=== PATIENT | female | born 1955 | race Caucasian/White ===

== ENCOUNTER 2025-08-25 07:42 | Inpatient (IN) ==
--- NOTE | 2025-07-13 15:50 | PAT Medication Instructions ---
Medication Instructions Date of Service July 13, 2025 Home Medications acetaminophen 500 mg tablet 500 mg PO QID PRN Pain albuterol sulfate 90 mcg/actuation aerosol inhaler 2 puff inhalation Q6H PRN sob amlodipine 5 mg tablet 5 mg PO QAM ascorbic acid (vitamin C) 500 mg tablet (Vitamin C) 500 mg PO DAILY aspirin 81 mg capsule 81 mg PO DAILY cyanocobalamin (vitamin B-12) 1,000 mcg/mL injection solution 100 mcg IM MO diphenhydramine 25 mg-acetaminophen 500 mg tablet (Tylenol PM Extra Strength) 1 tab PO HS PRN Sleep docusate sodium 100 mg capsule (Stool Softener) 100 mg PO DAILY PRN Constipation famotidine 20 mg tablet 20 mg PO BID levothyroxine 88 mcg tablet 88 mcg PO QAM losartan 25 mg tablet 25 mg PO QAM meclizine 12.5 mg tablet 12.5 mg PO BID PRN Vertigo metoprolol succinate 25 mg tablet,extended release 24 hr 75 mg PO BID nitroglycerin 0.4 mg sublingual tablet 0.4 mg sublingual UD PRN Chest Pain ondansetron HCl 4 mg tablet 4 mg PO Q6H PRN Nausea And Vomiting ropinirole 0.25 mg tablet 0.25 mg PO HS rosuvastatin 40 mg tablet 40 mg PO HS Continue as directed nitroglycerin 0.4 mg sublingual tablet 0.4 mg sublingual UD PRN Chest Pain (if needed) ASK your prescriber and surgeon aspirin 81 mg capsule 81 mg PO DAILY DO NOT take the morning of surgery ascorbic acid (vitamin C) 500 mg tablet (Vitamin C) 500 mg PO DAILY cyanocobalamin (vitamin B-12) 1,000 mcg/mL injection solution 100 mcg IM MO docusate sodium 100 mg capsule (Stool Softener) 100 mg PO DAILY PRN Constipation losartan 25 mg tablet 25 mg PO QAM Take morning of surgery With a small sip of water, OTHERWISE NOTHING TO EAT OR DRINK AFTER MIDNIGHT: acetaminophen 500 mg tablet 500 mg PO QID PRN Pain (if needed) albuterol sulfate 90 mcg/actuation aerosol inhaler 2 puff inhalation Q6H PRN sob (use if needed; please bring rescue inhaler with you to hospital day of surgery if possible) amlodipine 5 mg tablet 5 mg PO QAM famotidine 20 mg tablet 20 mg PO BID levothyroxine 88 mcg tablet 88 mcg PO QAM meclizine 12.5 mg tablet 12.5 mg PO BID PRN Vertigo (if needed) metoprolol succinate 25 mg tablet,extended release 24 hr 75 mg PO BID ondansetron HCl 4 mg tablet 4 mg PO Q6H PRN Nausea And Vomiting (if needed) Take evening before surgery acetaminophen 500 mg tablet 500 mg PO QID PRN Pain (if needed) albuterol sulfate 90 mcg/actuation aerosol inhaler 2 puff inhalation Q6H PRN sob (if needed) diphenhydramine 25 mg-acetaminophen 500 mg tablet (Tylenol PM Extra Strength) 1 tab PO HS PRN Sleep (if needed) docusate sodium 100 mg capsule (Stool Softener) 100 mg PO DAILY PRN Constipation (if needed) famotidine 20 mg tablet 20 mg PO BID meclizine 12.5 mg tablet 12.5 mg PO BID PRN Vertigo (if needed) metoprolol succinate 25 mg tablet,extended release 24 hr 75 mg PO BID ondansetron HCl 4 mg tablet 4 mg PO Q6H PRN Nausea And Vomiting (if needed) ropinirole 0.25 mg tablet 0.25 mg PO HS rosuvastatin 40 mg tablet 40 mg PO HS Other Notes If you have any questions please call us at [phone] or [phone] or [phone] or [phone]
--- NOTE | 2025-07-24 13:13 | Anesthesiology Consultation ---
Date of Service July 24, 2025 Assessment & Plan (1) Encounter for pre-operative examination: Chart Review Chart Review: Acceptable Risk for Surgery (pending surgeon ordered PCP and cardio clearances ) and Patient seen in Pre Admission Testing - Awaiting surgeon ordered PCP clearance 08/07/25 (Dr Sophai Singleton- [facility])- please send preop testing to PCP for review - Awaiting surgeon ordered cardio clearance (surgeon was requesting letter per patient) ([facility] [place]) - Check BSG AM DOS Per PAT appt on 07/24/25, no recent illness/disease exposures, illness related symptoms, or recent illness/disease positive tests. Will leave to surgeon's discretion if preop Covid testing needed Cardiology visit 06/21/25= "... here for cardiovascular evaluation... recommend continuation of Losartan... follow up in six months..." Teaching & Discussion Pre-Anesthesia Teaching/Discussion Notes: Instructed NPO after midnight before surgery,except medications with 15 cc of water. Medication instructions provided according to the PAT guidelines. History Surgery Operation Date: 08/25/25 07:45 Proposed Procedures p L4-S1 Decompression and Fusion, Possible L3-L4 Decompression and Fusion - Anthony Eldridge, Height/Weight Height: 5 ft 2 in Weight: 108.9 kg Allergies Allergy/AdvReac Type Severity Reaction Status Date / Time shellfish derived Allergy Unknown Abdominal Verified 07/13/25 14:30 Pain Medications Home Medications Medication Instructions Recorded Confirmed Last Taken acetaminophen 500 mg tablet 500 mg PO QID PRN Pain 07/13/25 07/13/25 Unknown albuterol sulfate 90 mcg/actuation 2 puff inhalation Q6H PRN sob 07/13/25 07/13/25 Unknown aerosol inhaler amlodipine 5 mg tablet 5 mg PO QAM 07/13/25 07/13/25 Unknown ascorbic acid (vitamin C) 500 mg 500 mg PO DAILY 07/13/25 07/13/25 Unknown tablet (Vitamin C) aspirin 81 mg capsule 81 mg PO DAILY 07/13/25 07/13/25 Unknown cyanocobalamin (vitamin B-12) 100 mcg IM MO 07/13/25 07/13/25 Unknown 1,000 mcg/mL injection solution diphenhydramine 25 1 tab PO HS PRN Sleep 07/13/25 07/13/25 Unknown mg-acetaminophen 500 mg tablet (Tylenol PM Extra Strength) docusate sodium 100 mg capsule 100 mg PO DAILY PRN Constipation 07/13/25 07/13/25 Unknown (Stool Softener) famotidine 20 mg tablet 20 mg PO BID 07/13/25 07/13/25 Unknown levothyroxine 88 mcg tablet 88 mcg PO QAM 07/13/25 07/13/25 Unknown losartan 25 mg tablet 25 mg PO QAM 07/13/25 07/13/25 Unknown meclizine 12.5 mg tablet 12.5 mg PO BID PRN Vertigo 07/13/25 07/13/25 Unknown metoprolol succinate 25 mg 75 mg PO BID 07/13/25 07/13/25 Unknown tablet,extended release 24 hr nitroglycerin 0.4 mg sublingual 0.4 mg sublingual UD PRN Chest Pain 07/13/25 07/13/25 Unknown tablet ondansetron HCl 4 mg tablet 4 mg PO Q6H PRN Nausea And Vomiting 07/13/25 07/13/25 Unknown ropinirole 0.25 mg tablet 0.25 mg PO HS 07/13/25 07/13/25 Unknown rosuvastatin 40 mg tablet 40 mg PO HS 07/13/25 07/13/25 Unknown Past Medical History Medical History Acid reflux well controlled and stable Awareness under anesthesia woke up during breast surgery CAD (coronary artery disease) s/p PCI to LCx- around Carotid artery disease <50% stenosis to bilateral ICAs per 11/2024 carotid duplex CKD (chronic kidney disease), stage III follows w/ [facility] in [place] (was up to stage IV- did improve with stage III with med changes and increased fluid intake) Diabetes Per records Diet controlled currently; does use Humalog PRN if on steroids Dyslipidemia History of COVID-19 (2022) resolved HTN (hypertension) Hx of myocardial infarction hx of "silent DE" Hypothyroidism Neuropathy bilat feet PAD (peripheral artery disease) Per LE arterial u/s 11/2024- no significant PVD to right LE; Mild (1-49%) PVD to left distal posterior tibial artery Renal cyst Restless legs syndrome (RLS) Sleep apnea CPAP Thyroid nodule hx radioactive iodine tx in her 20's Exercise / Class Metabolic Activity III < 4 Walking/Shop/Light housework (no chest pain or SOB with flat surface ambulation- uses cane to ambulate ) Past Surgical History Surgical History History of arthroplasty of left shoulder History of bilateral knee replacement History of bunionectomy of left great toe History of carpal tunnel surgery of right wrist History of endometrial ablation and cervical ablation History of esophagogastroduodenoscopy (EGD) Hx of bilateral breast reduction surgery Hx of bilateral cataract extraction Hx of cardiac catheterization abnormal stress test > 2 stents ~2014- [facility]- follows w/ cardio assoc in [place] Dr Escobar states has had a total of 5-6 caths done to "check things out" last done 2020("for med clearance prior to shoulder sx" ) - no stents- [facility] Hx of cholecystectomy Hx of colonoscopy Hx of tooth extraction Hx of tubal ligation Past Anesthesia History No Hx of Anesthesia Complications (with exception to awareness with surgery x 2 with sedation cases (denies awareness with ETT in place)) and No Family Hx of Anesthesia Complications History of PONV History of PONV (post op on the rides home of same day surgeries ) and Hx of Motion Sickness Social History Smoking Status: Former smoker Do You Dip or Chew Tobacco: No Smoking End Date: quit ~17 yrs ago Hx Alcohol Use: No Hx Substance Use: No (otc CBD gummy- for pain) substance use type: does not use Review of Systems Patient denies chest pain, shortness of breath at rest, cough, wheezing, palpitations. No hx of seizures, stroke. No hx of blood clots or blood transfusions Physical Exam Vital Signs VITALS BP 145/73 P 72 TEMP 97.8 SP02 96% on RA RESP 16 Constitutional no acute distress ENMT Mouth: no TMJ clicking Thyromental Distance: > or= 3.5 Finger Breadths (3.5) Mallampati Class: II Full upper denture Neck + short neck and + thick neck; neck extension not limited Respiratory normal respiratory effort; no respiratory distress Auscultation: lungs clear to auscultation bilaterally; no wheezes Cardiovascular Rate/Rhythm: regular rate and regular rhythm Heart Sounds: no murmur Vessels: no carotid bruit Musculoskeletal Spine: no pain with cervical ROM Extremities: extremities normal to inspection Psychiatric Orientation: alert Lab Results Anesthesia Preop Results Results Anesthesia Widget: WBC 6.54 K/ul (4.8-10.8) 07/24/25 Hgb 13.7 g/dL (12.0-16.0) 07/24/25 Hct 43.2 % (37.0-47.0) 07/24/25 Plt 206 K/uL (130-400) 07/24/25 Na 143 mmol/L (136-145) 07/24/25 K 4.5 mmol/L (3.5-5.1) 07/24/25 Cl 110 mmol/L (98-107) H 07/24/25 CO2 28 mmol/L (21-32) 07/24/25 BUN 19 mg/dl (6-23) 07/24/25 Creat 1.70 mg/dl (0.6-1.2) H 07/24/25 Glucose Level 114 mg/dl (70-99(Fasting)) H 07/24/25 PT 10.7 Seconds (9.0-12.0) 07/24/25 PTT 25 Seconds (21-31) 07/24/25 INR 1.0 (0.9-1.1) 07/24/25 HA1c 6.2 % (4.5-5.6) H 07/24/25 Urine Color Yellow 07/24/25 Urine Appearance Clear (Clear) 07/24/25 Urine pH 7.0 (4.5-7.5) 07/24/25 Urine Specific [place] 1.010 (1.000-1.030) 07/24/25 Urine Protein 2+ (Negative) H 07/24/25 Urine Glucose (UA) Negative (Negative) 07/24/25 Urine Ketones Negative (Negative) 07/24/25 Urine Blood 1+ (Negative) H 07/24/25 Urine Nitrite Negative (Negative) 07/24/25 Urine Bilirubin Negative (Negative) 07/24/25 Urine Urobilinogen Negative (Negative) 07/24/25 Urine Leukocyte Esterase Negative (Negative) 07/24/25 Urine WBC (Auto) 0-5 /hpf (0-5) 07/24/25 Urine RBC (Auto) 0-2 /hpf (0-2) 07/24/25 Urine Hyaline Casts (Auto) 0-2 /lpf (0-2) 07/24/25 Urine Epithelial Cells (Auto) 3-5 /hpf (0-2) H 07/24/25 Urine Bacteria (Auto) 2+ (None Seen) H 07/24/25 Blood Type O Positive 07/24/25 Antibody Screen NEGATIVE 07/24/25 Testing Laboratory Results Elevated creatinine- CKD stage III/IV Abnormal UA - surgeon's office informed Electrocardiogram Date: 07/24/25 Findings: + NSR @ (68bpm) Normal EKG per cardio Chest X-Ray Date: 05/23/25 Findings: + NAD Echocardiogram Date: 11/28/24 EF: 50-55% LV Function: normal Other Findings: + diastolic dysfunction (Grade I ); no LVH Mitral annulus demonstrates mild calcification; mitral leaflets are mildly sclerotic and MV opens normally Mild MR Normal pulmonary artery pressures Cardiac Catheterization Date: 04/27/23 LM= luminal irregularities LAD= luminal irregularities LCx= 20-30% stenosis in mid LCx followed by patent stent in mid to distal LCx. LPL branch has 20-30% stenosis/luminal irregularities Ramus= luminal irregularities RCA= luminal irregularities Impression: Nonobstructive CAD and patent stent in left circumflex Nonobstructive CAD of the LAD, ramus intermedius as well as nondominant RCA Other Testing Carotid doppler 11/17/24= <50% stenosis to bilateral ICAs. Antegrade flow to both vertebral arteries
[~2025-08-25 07:42] MED LIST: DEXAMETHASONE SOD INJ 4 MG/ML VIAL ONE; GLYCOPYRROLATE 0.2 MG/ML VIAL ONE; LIDOCAINE 2% 2 ML VIAL/AMP(20MG/ML) INFIL ONE; MIDAZOLAM HCL 1 MG/ML 2ML VIAL ONE; ONDANSETRON INJ 2 MG/ML 2 ML VIAL ONE; PROPOFOL IV EMULSION 10 MG/ML 20 ML VIAL IV ONE; ROCURONIUM BROMIDE 10 MG/ML 5 ML VIAL IV ONE; SUGAMMADEX SODIUM 200 MG/2 ML VIAL IV ONE
[2025-08-25] MEDS: CeleBREX 200 MG CAP PO SCH (08:11)
[2025-08-25] MEDS: LR 15ML/HR IV SCH (08:12)
[2025-08-25] MEDS: GABAPENTIN 300 MG CAP PO SCH (08:12)
[2025-08-25] MEDS: LR 60ML/HR IV SCH (08:12)
[2025-08-25] MEDS: ACETAMINOPHEN 500 MG TAB PO SCH (08:13)
[2025-08-25 08:16] LABS: Anion Gap 8.0 (3-11); Blood Urea Nitrogen 17.0 mg/dl (6-23); Calcium 10.0 mg/dl (8.6-10.3); Carbon Dioxide 26.0 mmol/L (21-32); Chloride 108.0 mmol/L (98-107); Creatinine Clr Calc Pharmacy 33.0 ml/min; Glucose 144.0 mg/dl (70-99(Fasting)); Potassium 4.4 mmol/L (3.5-5.1); Sodium 142.0 mmol/L (136-145)
[2025-08-25] MEDS ORDERED: ATROPINE SULFATE 0.1 MG/ML 10ML SYR IV PRN (08:32)
--- NOTE | 2025-08-25 09:16 | History & Physical Bridge Note ---
Date of Service August 25, 2025 History & Physical Bridge Note I have examined the patient, reviewed the History & Physical and in the interval since the performance of the History & Physical I have noted the following changes of clinical significance: no changes noted
--- NOTE | 2025-08-25 09:17 | History & Physical Report ---
Date of Service August 25, 2025 Assessment & Plan (1) Multilevel lumbosacral spondylosis with radiculopathy: Plan: L4-S1 decompression and fusion, possible L3-L4 decompression fusion History of Present Illness Chief Complaint: Back and bilateral leg pain Primary Care Provider: Jose Deutsch This is a 70-year-old female who presents for chronic persistent back and leg pain after failing course of nonoperative care is here for surgical invention. Allergies Allergy/AdvReac Type Severity Reaction Status Date / Time shellfish derived Allergy Unknown Abdominal Verified 08/25/25 07:43 Pain Home Medications Medication Instructions Recorded Confirmed Type acetaminophen 500 mg tablet 500 mg PO QID PRN Pain 07/13/25 08/25/25 History albuterol sulfate 90 mcg/actuation 2 puff inhalation Q6H PRN sob 07/13/25 08/25/25 History aerosol inhaler amlodipine 5 mg tablet 5 mg PO QAM 07/13/25 08/25/25 History ascorbic acid (vitamin C) 500 mg 500 mg PO DAILY 07/13/25 08/25/25 History tablet (Vitamin C) aspirin 81 mg capsule 81 mg PO DAILY 07/13/25 08/25/25 History cyanocobalamin (vitamin B-12) 100 mcg IM MO 07/13/25 08/25/25 History 1,000 mcg/mL injection solution diphenhydramine 25 1 tab PO HS PRN Sleep 07/13/25 08/25/25 History mg-acetaminophen 500 mg tablet (Tylenol PM Extra Strength) docusate sodium 100 mg capsule 100 mg PO DAILY PRN Constipation 07/13/25 08/25/25 History (Stool Softener) famotidine 20 mg tablet 20 mg PO BID 07/13/25 08/25/25 History levothyroxine 88 mcg tablet 88 mcg PO QAM 07/13/25 08/25/25 History losartan 25 mg tablet 25 mg PO QAM 07/13/25 08/25/25 History meclizine 12.5 mg tablet 12.5 mg PO BID PRN Vertigo 07/13/25 08/25/25 History metoprolol succinate 25 mg 75 mg PO BID 07/13/25 08/25/25 History tablet,extended release 24 hr nitroglycerin 0.4 mg sublingual 0.4 mg sublingual UD PRN Chest Pain 07/13/25 08/25/25 History tablet ondansetron HCl 4 mg tablet 4 mg PO Q6H PRN Nausea And Vomiting 07/13/25 08/25/25 History rosuvastatin 40 mg tablet 40 mg PO HS 07/13/25 08/25/25 History Past Med/Surg History Problem List (Updated 08/25/25 @ 09:17 by Anthony Eldridge, DO) Multilevel lumbosacral spondylosis with radiculopathy Medical History Acid reflux well controlled and stable Awareness under anesthesia woke up during breast surgery CAD (coronary artery disease) s/p PCI to LCx- around Carotid artery disease <50% stenosis to bilateral ICAs per 11/2024 carotid duplex CKD (chronic kidney disease), stage III follows w/ [facility] in [place] (was up to stage IV- did improve with stage III with med changes and increased fluid intake) Diabetes Per records Diet controlled currently; does use Humalog PRN if on steroids Dyslipidemia History of COVID-19 (2022) resolved HTN (hypertension) Hx of myocardial infarction hx of "silent PR" Hypothyroidism Neuropathy bilat feet PAD (peripheral artery disease) Per LE arterial u/s 11/2024- no significant PVD to right LE; Mild (1-49%) PVD to left distal posterior tibial artery Renal cyst Restless legs syndrome (RLS) Sleep apnea CPAP Thyroid nodule hx radioactive iodine tx in her 20's Surgical History History of arthroplasty of left shoulder History of bilateral knee replacement History of bunionectomy of left great toe History of carpal tunnel surgery of right wrist History of endometrial ablation and cervical ablation History of esophagogastroduodenoscopy (EGD) Hx of bilateral breast reduction surgery Hx of bilateral cataract extraction Hx of cardiac catheterization abnormal stress test > 2 stents ~2014- [facility]- follows w/ cardio assoc in [place] Dr Escobar states has had a total of 5-6 caths done to "check things out" last done 2020("for med clearance prior to shoulder sx" ) - no stents- [facility] Hx of cholecystectomy Hx of colonoscopy Hx of tooth extraction Hx of tubal ligation Social History Smoking Status: Former smoker Tobacco Type: Cigarettes Smoking End Date: quit ~17 yrs ago; Second Hand Exposure: No; Do You Dip or Chew Tobacco: No; Tobacco Cessation Education Requested by Patient: No Hx Alcohol Use: No Hx Substance Use: No (otc CBD gummy- for pain) Preferred Language: Citizen Of [place] Communication Ability: Effective Keypunch Operator Required: No Beliefs That Will Affect Care: None Current Living Situation: Spouse Other Information That Helps Us Care for You: No Feels Safe at Home: Yes Safety Concerns: Feels Safe At This Time Assistive Devices: Cane, CPAP, Denture - Upper and Glasses Assistive Devices Comment: reading glasses Physical Exam Physical Exam: Patient is alert and oriented Heart regular rhythm Lungs clear Results & Data Results & Data Vital Signs (Past 12 Hours) Vital Signs Temp Pulse Resp BP Pulse Ox O2 Del Method 08/25/25 07:58 37.2 C 72 20 151/70 H 96 Room Air
[2025-08-25] MEDS ORDERED: PHENYLEPHRINE 100MCG/ML 5ML SYR ONE (10:01)
[2025-08-25] MEDS ORDERED: ePHEDrine sulfate 50 MG/5 ML SYR ONE (10:01)
[2025-08-25] MEDS: ceFAZolin 330 MG/ML 1 GM VIAL ONE (10:15)
[2025-08-25] MEDS: BUPIVACAINE/EPINEPHRINE 0.25% 1:200,000 30 ML VIAL ONE (10:15)
[2025-08-25] MEDS: SURGICEL ABSORB HEMOSTAT 2IN X 14IN TOP ONE (11:04)
[2025-08-25] MEDS: FLOSEAL HEMOSTATIC MATRIX 10ML TOP ONE (12:23)
--- NOTE | 2025-08-25 12:52 | Operative Report ---
Post Operative Report Pre & Post Diagnosis Operation Date: 08/25/25 09:05 Pre-Op Diagnosis: #1 lumbar spondylosis with radiculopathy #2 lumbar spondylolisthesis with radiculopathy #3 lumbar disc nation with radiculopathy #4 morbid obesity Post-Op Diagnosis: Same I identified the patient and participated in the time-out.: Yes Procedure Operation Date: 08/25/25 09:05 Actual Procedures #1 lumbar decompression with bilateral middle facetectomies and foraminotomies L3-L4, L4-5 and L5-S1. #2 posterior spinal fusion L3-S1. #3 placed posterior segmental instrumentation L3-S1 using Mitchell. #4 interbody fusion L3-L4, L4-L5 and L5-S1. #5 placement of Spira 12 x 26 mm at L3-L4, 12 x 26 mm x 2 at L4-L5 and 13 x 26 mm x 1 at L5-S1. #6 placement of Koros combined with Proteus bone graft the posterior gutters and os design interbody space. #7 application of versa wrap of the exposed dura. Surgeon Anthony Eldridge, DO [employer] Hermelindo Rich Estimated Blood Loss 850 Findings See Below The patient is 5 foot 2 weighing 109 kg with a BMI of 44. The patient's body was created significant technical difficulty with the positioning exposure and the procedure itself require longus retractors and instruments in order to perform her procedure. This at least 40% increased operative time. I am recommending a modifier 22. Specimens None Indications This is a 70-year-old female that presents problems diagnosis after failing course of nonoperative care is here for surgical invention. Description of Procedure Patient was met with identified informed consent obtained. Patient was then taken to the operative suite underwent intubation placed in a prone position on the Franky table top of the Glen frame. All bony promises well-padded eyes inspected to ensure no external pressure placed upon them. This point the lumbar spine was prepped and draped in the normal sterile fashion. Sharp dissection with the assistance of Bovie cautery was formed down to and exposing the lamina and transverse processes of L3-L4-L5 and the sacral ala bilaterally. From caudal to cephalad fashion complete laminectomy of L5 L4 and L3 was performed including bilateral medial facetectomies and foraminotomies addressing severe neural compression. As well as addressing the foraminal disc herniation at L3-L4 on the right. Pedicle screws were then placed in L3-L4-L5 and S1 levels bilaterally with assistance of fluoroscopy the appropriate size isma placed. By way of a transforaminal approach on the right complete discectomy at L5-S1 was performed endplates corrected to subcortical bleeding bone and a 13 x 26 mm Spira cage tapped in position. Then proceeded L4-[address] of a transfer approach right a discectomy was performed endplates guarded to subcortical bleeding bone and a 12 x 26 mm Spira cage tapped into position. Then proceeded to the left side of the L4-[address] of a transforaminal approach a discectomy was again performed. Endplates guided to subcortical and bone and a 12 x 26 mm Spira cage tapped in position. Then proceeded to L3-L4 and by way of a trans from approach and a right and complete discectomy was performed endplates guided to subcortical bone and bone and a 12 x 26 mm Spira cage tapped into position. Please note all cages were packed with os design bone graft. The rods were then compressed locked in final position bilaterally. The transverse processes of L3 L4-5 and the sacral ala burred to subcortical b leeding bone. Koros combined with Proteus bone graft placed in posterior gutters. Versa wrap placed over the exposed dura. 15 round JACKI inserted. Incision was then closed with 1 Vicryl fascia 2-0 Vicryl subcutaneously and 4 Monocryl for final skin closure. Steri-Strips sterile dressing placed. Patient waken taken to PACU in a stable condition. Please note Hermelindo Ochoa was present at the entire procedure and brought the patient positioning complex portion of the surgery and final skin closure. I attest to the content of the Intraoperative Record and any orders documented therein. Any exceptions are noted below.
--- NOTE | 2025-08-25 13:04 | Fluoroscopy Report ---
INTRAOPERATIVE RADIOGRAPHS CLINICAL HISTORY: L4-S1 spinal fusion. Fluoro time: 25 seconds Ka,r: 22.21 mGy FINDINGS: 2 spot fluoroscopic views of the lumbar spine are presented. There has been multilevel disc ectomy with laminectomy and posterior fusion. Fusion is likely seen extending from L3 to S1. Intraped icular screws are present at all levels. The orthopedic hardware appears intact. IMPRESSION: Intraoperative images from lumbar spine fusion surgery as above. Electronically signed by: León Sommer M.D. 08/25/2025 1:03 PM
[2025-08-25] MEDS: HYDROmorphone INJ 2 MG/ML SYR/VIAL IV PRN (13:09)
[2025-08-25] MEDS: PROMETHAZINE HCL 6.25 MG in SODIUM CHLORIDE 0.9% 50 ML IV PRN (13:36)
--- NOTE | 2025-08-25 14:50 | Anesthesiology Progress Note ---
Date of Service August 25, 2025 Anesthesia Post Procedure Vital Signs Vital Signs: Temp Pulse Pulse Resp BP BP Pulse Ox 08/25/25 14:40 36.4 C L 72 14 99/61 L 98 08/25/25 14:25 36.4 C L 72 15 119/58 L 99 08/25/25 14:10 74 15 109/72 98 08/25/25 13:55 74 15 114/65 98 08/25/25 13:45 75 15 113/62 96 08/25/25 13:35 36.3 C L 70 15 109/63 98 08/25/25 13:25 70 15 99/53 L 99 08/25/25 13:15 71 15 97/54 L 99 08/25/25 13:05 73 15 103/58 L 99 08/25/25 12:59 36.3 C L 71 15 100/50 L 99 08/25/25 07:58 37.2 C 72 20 151/70 H 96 O2 Del Method O2 Flow Rate 08/25/25 14:40 Nasal Cannula 2 08/25/25 14:25 Nasal Cannula 2 08/25/25 14:10 Nasal Cannula 2 08/25/25 13:55 Nasal Cannula 2 08/25/25 13:45 Nasal Cannula 4 08/25/25 13:35 Oxymask 5 08/25/25 13:25 Oxymask 5 08/25/25 13:15 Oxymask 5 08/25/25 13:05 Oxymask 5 08/25/25 12:59 Oxymask 5 08/25/25 07:58 Room Air Transfer of Care Handoff Completed per policy Notes Mental Status: alert / awake / arousable and participated in evaluation Nausea / Vomiting: adequately controlled Pain: adequately controlled Airway Patency, RR, SpO2: stable & adequate BP & HR: stable & adequate Hydration State: stable & adequate Anesthetic Complications: no major complications apparent and Pt Satisfied with anesthetic care
[2025-08-25] MEDS ORDERED: MAGNESIUM HYDROXIDE SUSP 30 ML UDC PO PRN (15:00)
[2025-08-25] MEDS ORDERED: NITROGLYCERIN SL 0.4 MG/TAB TAB SL PRN (15:00)
[2025-08-25] MEDS ORDERED: METOCLOPRAMIDE HCL INJ 5 MG/ML 2 ML VIAL IV PRN (15:00)
[2025-08-25] MEDS ORDERED: SOD PHOSPHATE/SOD BIPHOSPHATE ENEMA 132 ML BTL PR PRN (15:00)
[2025-08-25] MEDS ORDERED: ONDANSETRON INJ 2 MG/ML 2 ML VIAL IV PRN (15:00)
[2025-08-25] MEDS ORDERED: ONDANSETRON 4 MG OD TAB PO PRN (15:00)
[2025-08-25] MEDS ORDERED: LORazepam Inj 0.5 MG in SYRINGE 0.25 ML IV PRN (15:00)
[2025-08-25] MEDS ORDERED: PROMETHAZINE 12.5 MG/50.5 ML BAG IV PRN (15:00)
[2025-08-25] MEDS ORDERED: NALOXONE HCL 0.4 MG/1 ML VIAL/CARP IV PRN (15:00)
[2025-08-25] MEDS ORDERED: NON-FORMULARY MEDICATION (Diphenhydramine-Acetaminophen [Tylenol Pm Extra Strength] 25-500 PO PRN (15:00)
[2025-08-25] MEDS ORDERED: DOCUSATE SODIUM 100 MG CAP PO PRN (15:00)
[2025-08-25] MEDS ORDERED: DO NOT ADMINISTER PNEUMOCOCCAL VACCINE PRN (15:00)
[2025-08-25] MEDS ORDERED: diphenhydrAMINE Capsule 25 MG CAP PO PRN (15:00)
[2025-08-25] MEDS ORDERED: LORazepam 0.5 MG TAB PO PRN (15:00)
[2025-08-25] MEDS ORDERED: MECLIZINE 12.5 MG TAB PO PRN (15:00)
[2025-08-25] MEDS ORDERED: ALUMINUM/MAGNESIUM SUSP 30 ML UDC PO PRN (15:00)
[2025-08-25] MEDS ORDERED: HYDROmorphone INJ 0.5 MG/0.5 ML SYR IV PRN (15:00)
[2025-08-25] MEDS ORDERED: ALBUTEROL HFA 8 GM INHALER INH PRN (15:00)
[2025-08-25] MEDS ORDERED: NON-FORMULARY MEDICATION (Ondansetron Hcl 4 mg Tablet) PO PRN (15:00)
[2025-08-25] MEDS ORDERED: ACETAMINOPHEN 1,000 MG/100 ML VIAL IV PRN (15:00)
[2025-08-25] MEDS ORDERED: DO NOT ADMINISTER FLU VACCINE PRN (15:00)
--- NOTE | 2025-08-25 15:32 | Consultation ---
Date of Consultation August 25, 2025 Assessment & Plan (1) Multilevel lumbosacral spondylosis with radiculopathy: (2) HTN (hypertension): (3) Sleep apnea: (4) Hypothyroidism: (5) Dyslipidemia: Plan Patient is a 70 year old female with past medical history of CAD s/p PCI to LCx in 2006, CKD Stage III, Diabetes Mellitus Type II, Dyslipidemia, hypothyroidism, PAD, Sleep Apnea, thyroid nodule hx radioactive iodine tx presenting with post- operative consultation status post lumbar decompression and spinal fusion with instrumentation with Dr. Eldridge today. Has had chronic low back pain for several years, has had steroid injections, and developed radicular symptoms with am bulation difficulty recently. #Multilevel lumbosacral spondylosis with radiculopathy s/p decompression and fusion POD #0 s/p lumbar decompression with bilateral middle facetectomies and foraminotomies L3-S1; posterior spinal fusion L3-S1, posterior segmental instrumentation L3-S1 placement, interbody fusion L3-S1 with Dr. Eldridge. EBL: 850 ml + additional 75 ml in JACKI drain; pre-op Hgb 13.7-> recheck with AM labs Per ortho for pain control, wound care, anticoagulation and activities NV checks Q4H Encourage incentive spirometry Q1H while awake PT/OT when appropriate Decadron and Cefazolin per Ortho #Hypertension #CKD Stage III BP soft post-op 99/61 Hold amlodipine and losartan in the morning and resume as able Renal functioning at baseline, Creatinine 1.82, GFR 29; per patient and , renal functioning has been worse with GFR in low 20's when BP was uncontrolled Monitor renal functioning with AM labs #Sleep Apnea On cpap at home without oxygen-> may use home CPAP machine here On 2 LPM supplemental oxygen post-op-> wean as able #CAD #Dyslipidemia s/p PCI to LCx in 2006 Continue home statin and aspirin #Hypothyroidism Continue home levothyroxine #Diabetes Per patient, A1C 6.3% ~ 2 months ago Has been on metformin and Ozempic in the past, now on diet control; patient concerned with possibility of hyperglycemia with steroid use while inpatient; discussed checking BMP in the morning; serum gluc 144 today Follow labs DVT Ppx: SCDs Code status: Full PCP: Dr. Deutsch Dispo: Admit Patient seen in collaboration with Dr. Muñiz. Please see addendum.I spent a total of 35 minutes coordinating, documenting and providing care for this patient excluding time spent in the performance of separately billed services or time spent by another provider/QHP. Supervising Physician Co-Signing Physician Notes Patient presenting s/p decompression and fusion post op day 0. Will monitor creatinine, Hgb, leukocytosis post op. Meds simplified to reduce polypharmacy and overlapping prns. Creatinine around baseline, has hx of CKD. Hemodynamically stable, oxygen need likely transient post operatively. I have discussed the case with the collaborating advanced practitioner. I agree with the above H&P. I have reviewed and confirmed the patients medical history, the findings on physical examination, and the patients diagnosis and treatment plan with Hiral YEPEZ and agree with the information documented. I spent a total of 10 minutes coordinating, documenting, and providing care for this patient excluding time spent in the performance of separately billed services. All of the aforementioned completed outside of collaborating with the assigned advanced practitioner for a full treatment plan. I have reviewed the advanced practitioner's documentation, and I agree with, and take responsibility for the plan of care History of Present Illness Attending Physician: Anthony Eldridge, History of Present Illness Patient is a 70 year old female with past medical history of CAD s/p PCI to LCx in 2006, CKD Stage III, Diabetes Mellitus Type II, Dyslipidemia, hypothyroidism, PAD, Sleep Apnea, thyroid nodule hx radioactive iodine tx presenting with post- operative consultation status post lumbar decompression and spinal fusion with instrumentation with Dr. Eldridge today. Has had chronic low back pain for several years, has had steroid injections, and developed radicular symptoms with ambulation difficulty recently. Post-operatively, reporting lower back discomfort that improved with pain meds. Denies headache, chest pain, shortness of breath, nausea, saddle anesthesia, numbness/tingling. Allergies Allergy/AdvReac Type Severity Reaction Status Date / Time shellfish derived Allergy Unknown Abdominal Verified 08/25/25 07:43 Pain Home Medications Medication Instructions Recorded Confirmed Type acetaminophen 500 mg tablet 500 mg PO QID PRN Pain 07/13/25 08/25/25 History albuterol sulfate 90 mcg/actuation 2 puff inhalation Q6H PRN sob 07/13/25 08/25/25 History aerosol inhaler amlodipine 5 mg tablet 5 mg PO QAM 07/13/25 08/25/25 History ascorbic acid (vitamin C) 500 mg 500 mg PO DAILY 07/13/25 08/25/25 History tablet (Vitamin C) aspirin 81 mg capsule 81 mg PO DAILY 07/13/25 08/25/25 History cyanocobalamin (vitamin B-12) 100 mcg IM MO 07/13/25 08/25/25 History 1,000 mcg/mL injection solution diphenhydramine 25 1 tab PO HS PRN Sleep 07/13/25 08/25/25 History mg-acetaminophen 500 mg tablet (Tylenol PM Extra Strength) docusate sodium 100 mg capsule 100 mg PO DAILY PRN Constipation 07/13/25 08/25/25 History (Stool Softener) famotidine 20 mg tablet 20 mg PO BID 07/13/25 08/25/25 History levothyroxine 88 mcg tablet 88 mcg PO QAM 07/13/25 08/25/25 History losartan 25 mg tablet 25 mg PO QAM 07/13/25 08/25/25 History meclizine 12.5 mg tablet 12.5 mg PO BID PRN Vertigo 07/13/25 08/25/25 History metoprolol succinate 25 mg 75 mg PO BID 07/13/25 08/25/25 History tablet,extended release 24 hr nitroglycerin 0.4 mg sublingual 0.4 mg sublingual UD PRN Chest Pain 07/13/25 08/25/25 History tablet ondansetron HCl 4 mg tablet 4 mg PO Q6H PRN Nausea And Vomiting 07/13/25 08/25/25 History rosuvastatin 40 mg tablet 40 mg PO HS 07/13/25 08/25/25 History Patient History Medical History Acid reflux well controlled and stable Awareness under anesthesia woke up during breast surgery CAD (coronary artery disease) s/p PCI to LCx- around Carotid artery disease <50% stenosis to bilateral ICAs per 11/2024 carotid duplex CKD (chronic kidney disease), stage III follows w/ [facility] in [place] (was up to stage IV- did improve with stage III with med changes and increased fluid intake) Diabetes Per records Diet controlled currently; does use Humalog PRN if on steroids Dyslipidemia History of COVID-19 (2023) resolved HTN (hypertension) Hx of myocardial infarction hx of "silent [place]" Hypothyroidism Neuropathy bilat feet PAD (peripheral artery disease) Per LE arterial u/s 11/2024- no significant PVD to right LE; Mild (1-49%) PVD to left distal posterior tibial artery Renal cyst Restless legs syndrome (RLS) Sleep apnea CPAP Thyroid nodule hx radioactive iodine tx in her 20's Surgical History History of arthroplasty of left shoulder History of bilateral knee replacement History of bunionectomy of left great toe History of carpal tunnel surgery of right wrist History of endometrial ablation and cervical ablation History of esophagogastroduodenoscopy (EGD) Hx of bilateral breast reduction surgery Hx of bilateral cataract extraction Hx of cardiac catheterization abnormal stress test > 2 stents ~2014- [facility]- follows w/ [facility] in [place] [address] Escobar states has had a total of 5-6 caths done to "check things out" last done 2020("for med clearance prior to shoulder sx" ) - no stents- [facility] Hx of cholecystectomy Hx of colonoscopy Hx of tooth extraction Hx of tubal ligation Social History Smoking Status: Former smoker Tobacco Type: Cigarettes Second Hand Exposure: No; Do You Dip or Chew Tobacco: No; Hx Alcohol Use: No Hx Substance Use: No (otc CBD gummy- for pain) Preferred Language: [place] Communication Ability: Effective Worm Grower Required: No Beliefs That Will Affect Care: None Current Living Situation: Spouse Feels Safe at Home: Yes Assistive Devices: Cane and Walker Review of Systems Review of Systems: All systems reviewed & are unremarkable except as noted in HPI & below Physical Exam Physical Exam: VITALS: Reviewed. WEIGHT/BMI reviewed. GEN: Healthy appearing, well-developed, NAD. PSYCH: Good Judgment. AOx3. Normal memory, mood, and affect. HEENT -Head: NC/AT; -Eyes: PERRL, EOMI. No discharge or redn ess; -Ears: External ears are normal. -Nose: Normal nares. -Mouth and throat: MMM. Normal gums, muc cass, palate,. Good dentition. NECK: Supple, with no masses. CV: RRR, no m/r/g. LUNGS: CTAB, no w/r/c. ABD: Soft, NT/ND, NBS, no masses or organomegaly. : glass with clear urine output SKIN: Warm, well perfused. No skin rashes or abnormal lesions. MSK: No deformities, LINO freely EXT: No clubbing, cyanosis, or edema. NEURO: CN II-XII grossly intact. Speech clear. No focal deficits. Results & Data Vital Signs (Past 12 Hours) Vital Signs Temp Pulse Pulse Resp BP BP Pulse Ox 08/25/25 14:40 36.4 C L 72 14 99/61 L 98 08/25/25 14:25 36.4 C L 72 15 119/58 L 99 08/25/25 14:10 74 15 109/72 98 08/25/25 13:55 74 15 114/65 98 08/25/25 13:45 75 15 113/62 96 08/25/25 13:35 36.3 C L 70 15 109/63 98 08/25/25 13:25 70 15 99/53 L 99 08/25/25 13:15 71 15 97/54 L 99 08/25/25 13:05 73 15 103/58 L 99 08/25/25 12:59 36.3 C L 71 15 100/50 L 99 08/25/25 07:58 37.2 C 72 20 151/70 H 96 O2 Del Method O2 Flow Rate 08/25/25 14:40 Nasal Cannula 2 08/25/25 14:25 Nasal Cannula 2 08/25/25 14:10 Nasal Cannula 2 08/25/25 13:55 Nasal Cannula 2 08/25/25 13:45 Nasal Cannula 4 08/25/25 13:35 Oxymask 5 08/25/25 13:25 Oxymask 5 08/25/25 13:15 Oxymask 5 08/25/25 13:05 Oxymask 5 08/25/25 12:59 Oxymask 5 08/25/25 07:58 Room Air Laboratory Results BMP 08/25/25 07:43 Sodium 142 Potassium 4.4 Chloride 108 H Carbon Dioxide 26 BUN 17 Creatinine 1.82 H Glucose 144 H Calcium 10.0 Diagnostic Findings Lumbar Spine X-Ray 08/25/25 09:05 INTRAOPERATIVE RADIOGRAPHS CLINICAL HISTORY: L4-S1 spinal fusion. Fluoro time: 25 seconds Ka,r: 22.21 mGy FINDINGS: 2 spot fluoroscopic views of the lumbar spine are presented. There has been multilevel discectomy with laminectomy and posterior fusion. Fusion is likely seen extending from L3 to S1. Intrapedicular screws are present at all levels. The orthopedic hardware appears intact. IMPRESSION: Intraoperative images from lumbar spine fusion surgery as above. Electronically signed by: León Sommer M.D. 08/25/2025 1:03 PM
[2025-08-25] MEDS: PROMETHAZINE HCL INJ 25 MG/ML 1 ML VIAL ONE (15:40)
[2025-08-25] MEDS: SODIUM CHLORIDE 0.9% 50 ML BAG ONE (15:40)
[2025-08-25] MEDS: SODIUM CHLORIDE 0.9% 1,000 ML IV SCH (15:50)
[2025-08-25] MEDS ORDERED: FAMOTIDINE 20 MG TAB PO SCH (21:00)
[2025-08-25] MEDS: METOPROLOL SUCC 25MG EXT REL TAB PO SCH (22:04)
[2025-08-25] MEDS: ROSUVASTATIN CALCIUM 20 MG TAB PO SCH (22:04)
[2025-08-25] MEDS: DOCUSATE SODIUM/SENNA 50/8.6MG TAB PO SCH (22:05)
[2025-08-25] MEDS: HYDROmorphone INJ 1 MG/ML SYRINGE IV PRN (22:05)
[2025-08-26] MEDS: POLYETHYLENE (MIRALAX) 17 GM PACK PO SCH (05:56)
[2025-08-26] MEDS: LEVOTHYROXINE SODIUM 88 MCG TABLET PO SCH (05:56)
[2025-08-26 07:00] LABS: Hematocrit (blood only) 33.1 % (37.0-47.0); Hemoglobin 10.4 g/dL (12.0-16.0); Immature Granulocytes # (auto) 0.09 K/uL (0.01-0.20); Immature Granulocytes % (auto) 0.7 %; Mean Corpuscular Hemoglobin 29.0 pg (25.0-34.0); Mean Corpuscular Volume 92.2 fL (80.0-100.0); Platelet Count 228 K/uL (130-400); RDW Standard Deviation 46.3 fL (36.4-46.3); Red Blood Count 3.59 M/uL (4.20-5.40); White Blood Count 13.37 K/ul (4.8-10.8)
[2025-08-26 07:27] LABS: Anion Gap 8.0 (3-11); Blood Urea Nitrogen 21.0 mg/dl (6-23); Calcium 8.9 mg/dl (8.6-10.3); Carbon Dioxide 22.0 mmol/L (21-32); Chloride 106.0 mmol/L (98-107); Creatinine Clr Calc Pharmacy 34.1 ml/min; Glucose 199.0 mg/dl (70-99(Fasting)); Potassium 4.8 mmol/L (3.5-5.1); Sodium 136.0 mmol/L (136-145)
[2025-08-26] MEDS ORDERED: ASCORBIC ACID 500 MG TAB PO SCH (09:00)
[2025-08-26] MEDS ORDERED: LOSARTAN POTASSIUM 25 MG TAB PO SCH (09:00)
[2025-08-26] MEDS: dexAMETHasone 6 MG in SYRINGE 0 ML IV SCH (09:14)
[2025-08-26] MEDS: ASPIRIN 81 MG CHEW PO SCH (09:17)
--- NOTE | 2025-08-26 11:00 | Orthopedic Progress Note ---
Date of Service August 26, 2025 Assessment & Plan (1) Multilevel lumbosacral spondylosis with radiculopathy: Plan: At this time we will continue physical therapy monitor JACKI output anticipate discharge home Thursday or Thursday. Admission and Anticipated Discharge Date Admission Date: August 25, 2025 Subjective Patient's leg pain is markedly improved. Back pain controlled. She has been up and ambulating. Physical Exam Physical Exam: Patient is currently bed. She distracted testing. Is comfortable. Results & Data Vital Signs (Past 12 Hours) Vital Signs Temp Pulse Resp BP Pulse Ox O2 Del Method 08/26/25 07:42 36.3 C L 74 16 138/76 97 Room Air 08/26/25 07:35 Room Air 08/26/25 03:52 36.7 C 78 18 119/73 95 Room Air Queries Orthopedic Spine Obesity: Yes
--- NOTE | 2025-08-26 13:37 | Hospitalist Progress Note ---
Date of Service August 26, 2025 Assessment & Plan (1) Multilevel lumbosacral spondylosis with radiculopathy: (2) HTN (hypertension): (3) Sleep apnea: (4) Hypothyroidism: (5) Dyslipidemia: Plan Patient is a 70 year old female with past medical history of CAD s/p PCI to LCx in 2006, CKD Stage III, Diabetes Mellitus Type II, Dyslipidemia, hypothyroidism, PAD, Sleep Apnea, thyroid nodule hx radioactive iodine tx presenting with post- operative consultation status post lumbar decompression and spinal fusion with instrumentation with Dr. Eldridge today. Has had chronic low back pain for several years, has had steroid injections, and developed radicular symptoms with ambulat ion difficulty recently. #Multilevel lumbosacral spondylosis with radiculopathy s/p decompression and fusion POD #0 s/p lumbar decompression with bilateral middle facetectomies and foraminotomies L3-S1; posterior spinal fusion L3-S1, posterior segmental instrumentation L3-S1 placement, interbody fusion L3-S1 with Dr. Eldridge. EBL: 850 ml + additional 75 ml in JACKI drain; pre-op Hgb 13.7-> recheck with AM labs Per ortho for pain control, wound care, anticoagulation and activities NV checks Q4H Encourage incentive spirometry Q1H while awake PT/OT when appropriate Decadron and Cefazolin per Ortho Clinically much better with minimal pain at the back without any radiation #Hypertension #CKD Stage III BP soft post-op 99/61 Hold amlodipine and losartan in the morning and resume as able Renal functioning at baseline, Creatinine 1.82, GFR 29; per patient and , renal functioning has been worse with GFR in low 20's when BP was uncontrolled Monitor renal functioning with AM labs All labs remain unremarkable with creatinine stable at 1.76 and white count minimally elevated due to Decadron and doubt any infection Her blood pressure remains stable on the upper side at 148/79 #Sleep Apnea On cpap at home without oxygen-> may use home CPAP machine here On 2 LPM supplemental oxygen post-op-> wean as able No acute issues #CAD #Dyslipidemia s/p PCI to LCx in 2006 Continue home statin and aspirin Denies any cardiac symptoms #Hypothyroidism Continue home levothyroxine #Diabetes Per patient, A1C 6.3% ~ 2 months ago Has been on metformin and Ozempic in the past, now on diet control; patient concerned with possibility of hyperglycemia with steroid use while inpatient; discussed checking BMP in the morning; serum gluc 144 today Follow labs DVT Ppx: SCDs Code status: Full PCP: Dr. Deutsch Dispo: Admit I spent a total of 37 minutes seeing the patient, examining her, reviewing the chart and tests, discussion with the patient and planning of care. Admission and Anticipated Discharge Date Admission Date: August 25, 2025 Subjective 08/26/2025 Patient was seen and examined in medical floor She is a status post L3-S1 decompression and fusion She has back pain but her radiculopathic pain is almost gone Denies any other significant symptoms Review of Systems Review of Systems: All systems reviewed and are unremarkable except as noted below Physical Exam Physical Exam: Sitting on a chair without any acute distress Constitutional: well developed, well nourished and + morbidly obese; not ill appearing Eyes: PERRL, conjunctivae normal, anicteric sclerae ENMT: external ear and nose normal, oropharynx normal Neck: trachea midline, no thyromegaly Respiratory: no respiratory distress Auscultation: lungs clear to auscultation bilaterally Cardiovascular: Rate/Rhythm: regular rate and regular rhythm; not tachycardic Heart Sounds: normal S1 and normal S2; no murmur Extremities: + edema (Trace to 1+ edema bilaterally) Musculoskeletal: Has back pain with localized tenderness but no acute arthritis involving other joints Neurologic: normal touch/pain/proprioception and moves all extremities; no focal motor deficits Lymphatic: no cervical or axillary lymphadenopathy Results & Data Results & Data Vital Signs (Past 12 Hours) Vital Signs Temp Pulse Resp BP Pulse Ox O2 Del Method 08/26/25 12:35 36.9 C 78 16 148/79 H 95 Room Air 08/26/25 07:42 36.3 C L 74 16 138/76 97 Room Air 08/26/25 07:35 Room Air 08/26/25 03:52 36.7 C 78 18 119/73 95 Room Air Laboratory Results Short CBC 08/26/25 Range/Units 06:13 WBC 13.37 H (4.8-10.8) K/ul Hgb 10.4 L (12.0-16.0) g/dL Hct 33.1 L (37.0-47.0) % Plt Count 228 (130-400) K/uL BMP 08/26/25 06:13 Sodium 136 Potassium 4.8 Chloride 106 Carbon Dioxide 22 BUN 21 Creatinine 1.76 H Glucose 199 H Calcium 8.9 Medications Administered Current Inpatient Medications Acetaminophen (Acetaminophen 500 Mg Tab) 1,000 mg PO Q8H PRN PRN Reason: MILD Pain (1,2,3) & Pre PT Stop: 09/24/25 14:59 Albuterol (Albuterol Hfa 8 Gm Inhaler) 2 puffs INH Q6H PRN PRN Reason: sob Stop: 09/24/25 14:59 Amlodipine Besylate (Amlodipine Besylate 5 Mg Tab) 5 mg PO QAM DIXON Stop: 09/25/25 08:59 Aspirin (Aspirin 81 Mg Chew) 81 mg PO DAILY [facility] Stop: 09/25/25 08:59 Last Admin: 08/26/25 09:17 Dose: 81 mg Bisacodyl (Bisacodyl 10 Mg Supp) 10 mg KS DAILY PRN PRN Reason: Constipation Stop: 09/24/25 14:59 Famotidine (Famotidine 20 Mg Tab) 20 mg PO Q12H PRN PRN Reason: Dyspepsia Stop: 09/24/25 14:59 Hydromorphone HCl (Hydromorphone Inj 0.5 Mg/0.5 Ml Syr) 0.5 mg IV Q3H PRN PRN Reason: MODERATE Pain(4,5,6)/Pre PT Stop: 09/08/25 14:59 Hydromorphone HCl (Hydromorphone Inj 1 Mg/Ml Syringe) 1 mg IV Q3H PRN PRN Reason: SEVERE Pain (7,8,9,10) Stop: 09/08/25 14:59 Last Admin: 08/25/25 22:05 Dose: 1 mg Hydroxyzine HCl (Hydroxyzine Hcl 25 Mg Tab) 25 mg PO Q8H PRN PRN Reason: Anxiety Stop: 09/24/25 14:59 Dexamethasone 6 mg/ Syringe 1.5 mls @ 1 mls/min IV DAILY [facility] Stop: 08/28/25 09:02 Last Admin: 08/26/25 09:14 Dose: 1 mls/min Cefazolin Sodium (Ancef 2000mg) 2,000 mg in 15 mls @ 3.75 mls/min IV Q12 [facility] Stop: 08/28/25 11:03 Influenza Virus Vaccine Quadrival (Do Not Administer Flu Vaccine) 1 each N/A PRN PRN PRN Reason: Notification Stop: 09/24/25 14:59 Levothyroxine Sodium (Levothyroxine Sodium 88 Mcg Tablet) 88 mcg PO DAILYBB [facility] Stop: 09/25/25 06:29 Last Admin: 08/26/25 05:56 Dose: 88 mcg Losartan Potassium (Losartan Potassium 25 Mg Tab) 25 mg PO QAM [facility] Stop: 09/25/25 08:59 Meclizine HCl (Meclizine 12.5 Mg Tab) 12.5 mg PO BID PRN PRN Reason: Vertigo Stop: 09/24/25 14:59 Metoprolol Succinate (Metoprolol Succ 25mg Ext Rel Tab) 75 mg PO BID [facility] Stop: 09/24/25 20:59 Last Admin: 08/26/25 09:14 Dose: 75 mg Naloxone HCl (Naloxone Hcl 0.4 Mg/1 Ml Vial/Carp) 0.1 mg IV Q5M PRN PRN Reason: Oversedation/Resp depression Stop: 09/24/25 14:59 Ondansetron HCl (Ondansetron Inj 2 Mg/Ml 2 Ml Vial) 4 mg IV Q6H PRN PRN Reason: Nausea &/or Vomiting Stop: 09/24/25 14:59 Ondansetron HCl (Ondansetron 4 Mg Od Tab) 4 mg PO Q6H PRN PRN Reason: Nausea Stop: 09/24/25 14:59 Oxycodone HCl (Oxycodone Hcl Ir 5 Mg Tab (Immediate Release)) 5 - 10 mg PO Q4H PRN PRN Reason: MOD/SEV Pain & Pre PT Stop: 09/08/25 14:59 Last Admin: 08/26/25 14:40 Dose: 10 mg Pneumococcal Polyvalent Vaccine (Do Not Administer Pneumococcal Vaccine) 1 each N/A PRN PRN PRN Reason: Notification Stop: 09/24/25 14:59 Polyethylene Glycol (Polyethylene (Miralax) 17 Gm Pack) 17 gm PO Q6 [facility] Stop: 09/25/25 05:59 Last Admin: 08/26/25 11:24 Dose: 17 gm Rosuvastatin Calcium (Rosuvastatin Calcium 20 Mg Tab) 40 mg PO HS [facility] Stop: 09/24/25 20:59 Last Admin: 08/25/25 22:04 Dose: 40 mg Senna/Docusate Sodium (Docusate Sodium/Senna 50/8.6mg Tab) 2 tab PO HS DIXON Stop: 09/24/25 20:59 Last Admin: 08/25/25 22:05 Dose: 2 tab
[2025-08-26] MEDS: ACETAMINOPHEN 500 MG TAB PO PRN (21:28)
--- NOTE | 2025-08-27 11:13 | Orthopedic Progress Note ---
Date of Service August 27, 2025 Assessment & Plan (1) Multilevel lumbosacral spondylosis with radiculopathy: Plan: At this time we will continue physical therapy monitor her JACKI output anticipate discharge home tomorrow. Admission and Anticipated Discharge Date Admission Date: August 25, 2025 Subjective Patient's back pain is controlled leg symptoms markedly improved. She is ambulating well. Negotiating stairs. Physical Exam Physical Exam: Patient is in the chair at the bedside. She is comfortable. Constricted testing. Results & Data Vital Signs (Past 12 Hours) Vital Signs Temp Pulse Resp BP Pulse Ox O2 Del Method 08/27/25 07:31 36.7 C 63 16 140/67 98 Room Air Queries Orthopedic Spine Obesity: Yes
--- NOTE | 2025-08-27 16:01 | Hospitalist Progress Note ---
Date of Service August 27, 2025 Assessment & Plan (1) Multilevel lumbosacral spondylosis with radiculopathy: (2) HTN (hypertension): (3) Sleep apnea: (4) Hypothyroidism: (5) Dyslipidemia: Plan Patient is a 70 year old female with past medical history of CAD s/p PCI to LCx in 2006, CKD Stage III, Diabetes Mellitus Type II, Dyslipidemia, hypothyroidism, PAD, Sleep Apnea, thyroid nodule hx radioactive iodine tx presenting with post- operative consultation status post lumbar decompression and spinal fusion with instrumentation with Dr. Eldridge today. Has had chronic low back pain for several years, has had steroid injections, and developed radicular symptoms with ambulat ion difficulty recently. #Multilevel lumbosacral spondylosis with radiculopathy s/p decompression and fusion POD #0 s/p lumbar decompression with bilateral middle facetectomies and foraminotomies L3-S1; posterior spinal fusion L3-S1, posterior segmental instrumentation L3-S1 placement, interbody fusion L3-S1 with Dr. Eldridge. EBL: 850 ml + additional 75 ml in JACKI drain; pre-op Hgb 13.7-> recheck with AM labs Per ortho for pain control, wound care, anticoagulation and activities NV checks Q4H Encourage incentive spirometry Q1H while awake PT/OT when appropriate Decadron and Cefazolin per Ortho Clinically much better with minimal pain at the back without any radiation Medically stable to be discharged Her labs were reviewed and remained unremarkable with improvement of kidney function with creatinine mildly elevated at 1.76 but better compared with yesterday at 1.82 She was advised to drink more fluid #Hypertension #CKD Stage III BP soft post-op 99/61 Hold amlodipine and losartan in the morning and resume as able Renal functioning at baseline, Creatinine 1.82, GFR 29; per patient and , renal functioning has been worse with GFR in low 20's when BP was uncontrolled Monitor renal functioning with AM labs All labs remain unremarkable with creatinine stable at 1.76 and white count minimally elevated due to Decadron and doubt any infection Her blood pressure remains stable on the upper side at 148/79 Blood pressure remains stable at 137/79 #Sleep Apnea On cpap at home without oxygen-> may use home CPAP machine here On 2 LPM supplemental oxygen post-op-> wean as able No acute issues #CAD #Dyslipidemia s/p PCI to LCx in 2006 Continue home statin and aspirin Denies any cardiac symptoms #Hypothyroidism Continue home levothyroxine #Diabetes Per patient, A1C 6.3% ~ 2 months ago Has been on metformin and Ozempic in the past, now on diet control; patient concerned with possibility of hyperglycemia with steroid use while inpatient; discussed checking BMP in the morning; serum gluc 144 today Follow labs DVT Ppx: SCDs Code status: Full PCP: Dr. Deutsch Dispo: Admit I spent a total of 37 minutes seeing the patient, examining her, reviewing the chart and tests, discussion with the patient and planning of care. Admission and Anticipated Discharge Date Admission Date: August 25, 2025 Subjective 08/26/2025 Patient was seen and examined in medical floor She is a status post L3-S1 decompression and fusion She has back pain but her radiculopathic pain is almost gone Denies any other significant symptoms 08/27/2025 The patient was seen and examined in medical floor in presence of the She has been much better Minimal pain at the back but no radiculopathic pain Still has the JACKI drain in situ Review of Systems Review of Systems: All systems reviewed and are unremarkable except as noted below Physical Exam Physical Exam: Sitting on a chair without any acute distress Constitutional: well developed, well nourished and + morbidly obese; not ill appearing Eyes: PERRL, conjunctivae normal, anicteric sclerae ENMT: external ear and nose normal, oropharynx normal Neck: trachea midline, no thyromegaly Respiratory: no respiratory distress Auscultation: lungs clear to auscultation bilaterally Cardiovascular: Rate/Rhythm: regular rate and regular rhythm; not tachycardic Heart Sounds: normal S1 and normal S2; no murmur Extremities: + edema (Trace to 1+ edema bilaterally) Neurologic: normal touch/pain/proprioception and moves all extremities; no focal motor deficits Lymphatic: no cervical or axillary lymphadenopathy Results & Data Results & Data Vital Signs (Past 12 Hours) Vital Signs Temp Pulse Resp BP BP Pulse Ox O2 Del Method 08/27/25 15:00 36.6 C 72 16 137/79 97 Room Air 08/27/25 07:31 36.7 C 63 16 140/67 98 Room Air Medications Administered Current Inpatient Medications Acetaminophen (Acetaminophen 500 Mg Tab) 1,000 mg PO Q8H PRN PRN Reason: MILD Pain (1,2,3) & Pre PT Stop: 09/24/25 14:59 Last Admin: 08/26/25 21:28 Dose: 1,000 mg Albuterol (Albuterol Hfa 8 Gm Inhaler) 2 puffs INH Q6H PRN PRN Reason: sob Stop: 09/24/25 14:59 Amlodipine Besylate (Amlodipine Besylate 5 Mg Tab) 5 mg PO QAM [facility] Stop: 09/25/25 08:59 Aspirin (Aspirin 81 Mg Chew) 81 mg PO DAILY [facility] Stop: 09/25/25 08:59 Last Admin: 08/27/25 08:32 Dose: 81 mg Bisacodyl (Bisacodyl 10 Mg Supp) 10 mg DC DAILY PRN PRN Reason: Constipation Stop: 09/24/25 14:59 Famotidine (Famotidine 20 Mg Tab) 20 mg PO Q12H PRN PRN Reason: Dyspepsia Stop: 09/24/25 14:59 Hydromorphone HCl (Hydromorphone Inj 0.5 Mg/0.5 Ml Syr) 0.5 mg IV Q3H PRN PRN Reason: MODERATE Pain(4,5,6)/Pre PT Stop: 09/08/25 14:59 Hydromorphone HCl (Hydromorphone Inj 1 Mg/Ml Syringe) 1 mg IV Q3H PRN PRN Reason: SEVERE Pain (7,8,9,10) Stop: 09/08/25 14:59 Last Admin: 08/25/25 22:05 Dose: 1 mg Hydroxyzine HCl (Hydroxyzine Hcl 25 Mg Tab) 25 mg PO Q8H PRN PRN Reason: Anxiety Stop: 09/24/25 14:59 Dexamethasone 6 mg/ Syringe 1.5 mls @ 1 mls/min IV DAILY [facility] Stop: 08/28/25 09:02 Last Admin: 08/27/25 08:33 Dose: 1 mls/min Cefazolin Sodium (Ancef 2000mg) 2,000 mg in 15 mls @ 3.75 mls/min IV Q12 [facility] Stop: 08/28/25 11:03 Last Admin: 08/27/25 08:32 Dose: 3.75 mls/min Influenza Virus Vaccine Quadrival (Do Not Administer Flu Vaccine) 1 each N/A PRN PRN PRN Reason: Notification Stop: 09/24/25 14:59 Levothyroxine Sodium (Levothyroxine Sodium 88 Mcg Tablet) 88 mcg PO DAILYBB [facility] Stop: 09/25/25 06:29 Last Admin: 08/27/25 05:42 Dose: 88 mcg Losartan Potassium (Losartan Potassium 25 Mg Tab) 25 mg PO QAM [facility] Stop: 09/25/25 08:59 Meclizine HCl (Meclizine 12.5 Mg Tab) 12.5 mg PO BID PRN PRN Reason: Vertigo Stop: 09/24/25 14:59 Metoprolol Succinate (Metoprolol Succ 25mg Ext Rel Tab) 75 mg PO BID [facility] Stop: 09/24/25 20:59 Last Admin: 08/27/25 08:32 Dose: 75 mg Naloxone HCl (Naloxone Hcl 0.4 Mg/1 Ml Vial/Carp) 0.1 mg IV Q5M PRN PRN Reason: Oversedation/Resp depression Stop: 09/24/25 14:59 Ondansetron HCl (Ondansetron Inj 2 Mg/Ml 2 Ml Vial) 4 mg IV Q6H PRN PRN Reason: Nausea &/or Vomiting Stop: 09/24/25 14:59 Ondansetron HCl (Ondansetron 4 Mg Od Tab) 4 mg PO Q6H PRN PRN Reason: Nausea Stop: 09/24/25 14:59 Oxycodone HCl (Oxycodone Hcl Ir 5 Mg Tab (Immediate Release)) 5 - 10 mg PO Q4H PRN PRN Reason: MOD/SEV Pain & Pre PT Stop: 09/08/25 14:59 Last Admin: 08/27/25 10:51 Dose: 10 mg Pneumococcal Polyvalent Vaccine (Do Not Administer Pneumococcal Vaccine) 1 each N/A PRN PRN PRN Reason: Notification Stop: 09/24/25 14:59 Polyethylene Glycol (Polyethylene (Miralax) 17 Gm Pack) 17 gm PO Q6 [facility] Stop: 09/25/25 05:59 Last Admin: 08/27/25 12:13 Dose: Not Given Rosuvastatin Calcium (Rosuvastatin Calcium 20 Mg Tab) 40 mg PO HS [facility] Stop: 09/24/25 20:59 Last Admin: 08/26/25 21:28 Dose: 40 mg Senna/Docusate Sodium (Docusate Sodium/Senna 50/8.6mg Tab) 2 tab PO HS [facility] Stop: 09/24/25 20:59 Last Admin: 08/26/25 21:28 Dose: 2 tab
[2025-08-27] MEDS: FAMOTIDINE 20 MG TAB PO PRN (17:40)
--- NOTE | 2025-08-28 07:57 | Discharge Summary ---
Date of Service August 28, 2025 Admission HPI Per Admitting Provider This is a 70-year-old female who presents for chronic persistent back and leg pain after failing course of nonoperative care is here for surgical invention. Principal Diagnosis Lumbar spondylosis with radiculopathy Discharge Data Allergies Allergy/AdvReac Type Severity Reaction Status Date / Time shellfish derived Allergy Unknown Abdominal Verified 08/25/25 07:43 Pain Consultations 08/25/25 15:00 Consult Hospitalist Routine Procedures Performed Operation Date: 08/25/25 09:05 Actual Procedures p L3-S1 Decompression and Fusion(Not Applicable) - Anthony Eldridge DO Ordered Studies 08/25/25 09:05 FL lumbar spine 2-3V Routine Hospital Course (1) Multilevel lumbosacral spondylosis with radiculopathy: Patient went multilevel lumbar depression fusion tolerated so second orthopedic for postoperative. Postop release she was up and ambulating. JACKI drain decreased appropriately. Pain well-controlled. Extra strength testing. Safely discharged home. Discharge orders and instructions from the chart for further review. Total Time Total Time Spent Total Time Spent (In Minutes): 20 minutes Discharge Plan Discharge Items Patient Disposition: Home - Home Health Services Reason For Visit: Lumbar Spondylosis, Spondylolithesis Lumbar Region Discharge Diagnosis: Multilevel lumbar spondylosis with radiculopathy Activity: As commented below Non-emergency contact: Primary Care Provider Call non-emergency contact if: you have any medication questions Follow-up/Referrals: Jose Deutsch D.O. [Primary Care Provider] - Diet: Regular Addtl Attending Provider Instructions: ACTIVITY RECOMMENDATIONS: SELF CARE INSTRUCTIONS AFTER THORACIC/LUMBAR FUSIONS 1. You may walk to your tolerance. It is good exercise for your legs and back. Expect some back and intermittent leg aches and pains. 2. You may perform "counter-top" level activities (make a sandwich, stephanie with a project, etc.). 3. No bending or lifting of more than 10 pounds or back twisting of any nature (roll like a log when turning in bed). 4. You may ride in a car for 20-30 minutes at a time. No driving until after your first visit with your doctor. 5. Frequent changes of position and restricting sitting to 30 minutes at a time will help limit the amount of back spasms and stiffness you may experience. 6. You may discontinue the use of ambulatory aids (cane, crutches, etc.) once your strength and confidence allow. 7. You may strategic sourcing manager the shower and let water strike your incision when you arrive home at least once daily. Do not take a tub bath, sit in a hot tub or go into a swimming pool until after your first recheck in the office. 8. You may resume previous diet. SPECIAL CARE INSTRUCTIONS: VERY IMPORTANT TO READ AND REVIEW A. Your surgical incision has been closed with a cosmetic suture under the skin that will dissolve in about 6 weeks. In 14 days, you can use a pair of clean scissors and cut the suture that is left outside of the skin at the ends of your incision. 1. The small skin tapes can be removed 7 days after surgery if they have not fallen off by that point. 2. You may keep the wound open to air as much as possible to promote healing after post-op day number 5 unless told otherwise by your doctor. 3. If you think the wound looks like it is becoming infected (redness or worsening drainage) and/or you are experiencing fever, chill or worsening back pain and muscle spasms, contact the office so that we may evaluate you as soon as possible. B. Complications are uncommon, but please contact us if you have any signs or symptoms of: 1. wound infection (fever higher than 102.5 degrees F, redness, separation of wound, drainage, or increasing pain from the incision) 2. blood clots in legs (pain, swelling, redness and warmth in legs) 3. urinary tract infection (fever higher than 102.5 degrees F, burning upon urination or increased frequency of urination) 4. nerve problems (inability to walk on your toes or heels, numbness, loss of bowel or bladder control) 5. any other symptoms that concern you C. Please call the office at if you have any concerns or questions about your operation or recovery. D. No smoking! Smoking drastically decreases the chance of a solid fusion. E. Do not take any anti-inflammatory medications (Indocin, Advil, Motrin, Aspirin, Naprosyn, etc.) as these may inhibit the chance of a solid fusion. Tylenol is okay to take for pain. MANAGING PAIN AFTER SPINAL SURGERY 1. Narcotic medication is intended for short-term use and will be provided for surgical pain. Surgical pain usually lasts for a period of 4-6 weeks. Narcotic medication includes Percocet, Vicodin, Darvocet, Tylenol #3 or Lortab. 2. Longer-term pain is more appropriately treated with non-narcotic medication such as Tylenol ES. 3. Muscle spasm is not appropriately treated with narcotics. Muscle relaxers such as Soma, Flexeril or Skelaxin can be used along with Tylenol ES. 4. Remember that we all live with some "aches and pains". This is not unusual or uncommon after an injury or as we get older. a. Back pain is expected and may include muscle spasms for 4 to 6 weeks after surgery. The pain should gradually improve. If the pain worsens for no apparent reason, please contact the office. b. Intermittent leg pain may also be experienced and should not be concerned about unless it worsens for no apparent reason. If so, please contact the office. 5. We will provide appropriate medication within the normal guidelines of their prescribed use. We will also be very cautious and aware of potential abuse and extended duration of patients' medication needs. a. Pain medications are for your comfort and to assist with sleep and rest so that the tissue can heal. They are not provided in order to return to normal activity and should not be used through the day. To do so or worsening pain at night can result from ongoing tissue damage and development of tolerance to the prescribed medicine. 6. Please allow 2-3 days to process refills. Prescriptions will not be mailed but must be picked up at the office. FOLLOW UP VISIT: Keep your scheduled follow-up appointment. Any questions, please call the office at . Pending Studies at Discharge: No Stand-Alone Forms: My [facility] [employer], Smoking Cessation Medications and DC Order Prescriptions: New tramadol 50 mg tablet 50 mg PO Q6H PRN (Reason: pain, moderate) Qty: 30 0RF oxycodone 5 mg tablet 5 mg PO Q6H PRN (Reason: pain) Qty: 30 0RF Rx Instructions: Oxycodone for severe pain tramadol for moderate pain Continued ondansetron HCl [Zofran] 4 mg Tablet 4 mg PO Q6H PRN (Reason: Nausea And Vomiting) meclizine 12.5 mg Tablet 12.5 mg PO BID PRN (Reason: Vertigo) amlodipine 5 mg Tablet 5 mg PO QAM acetaminophen 500 mg Tablet 500 mg PO QID PRN (Reason: Pain) levothyroxine 88 mcg Tablet 88 mcg PO QAM famotidine 20 mg Tablet 20 mg PO BID ascorbic acid (vitamin C) [Vitamin C] 500 mg Tablet 500 mg PO DAILY cyanocobalamin (vitamin B-12) [Vitamin B-12] 1,000 mcg/mL Solution 100 mcg IM MO losartan 25 mg Tablet 25 mg PO QAM nitroglycerin 0.4 mg Tablet, Sublingual 0.4 mg sublingual UD PRN (Reason: Chest Pain) docusate sodium [Stool Softener] 100 mg Capsule 100 mg PO DAILY PRN (Reason: Constipation) metoprolol succinate 25 mg Tablet Extended Release 24 Hr 75 mg PO BID albuterol sulfate 90 mcg/actuation Hfa Aerosol Inhaler 2 puff INHALATION Q6H PRN (Reason: sob) diphenhydramine-acetaminophen [Tylenol PM Extra Strength] 25-500 mg Tablet 1 tab PO HS PRN (Reason: Sleep) rosuvastatin 40 mg Tablet 40 mg PO HS aspirin 81 mg Capsule 81 mg PO DAILY Discharge Orders: Discharge Order (Routine); Ordered 08/28/25 Ordered By: Anthony Eldridge Admission Data Admit Date/Time: 08/25/25 12:57 Attending Provider: Anthony Eldridge Admit Provider: Anthony Elrdidge Primary Care Provider: Jose Deutsch. Other Providers: [facility]; Gemma Kinney; Dany Sims
[2025-08-28 08:25] VITALS: BP 150/80; RESP 16; TEMP 97.9; O2SAT 97
[2025-08-28 09:27] VITALS: PULSE 74
[2025-08-29] MEDS ORDERED: CYANOCOBALAMIN 1000 MCG/ML VIAL IM SCH (09:00)
== END 2025-08-28 10:23 | disposition home health service (06) | DRG 427 ==
LOC: ASU 07:42 → 3N 12:57